=== PATIENT | male | born 1975 | race Caucasian/White ===

== ENCOUNTER → 2021-05-10 13:31 | Outpatient (BNVA) | payer SELFPAY | PROVIDERS: Family Provider Nurse Practitioner; PCP Nurse Practitioner Family; Visit Provider Nurse Practitioner Family | DX: S69.91XA Unspecified injury of right wrist, hand and finger(s), initial encounter (principal); X58.XXXA Exposure to other specified factors, initial encounter | CPT/HCPCS: 73130 ==

== ENCOUNTER → 2024-02-13 15:30 | Outpatient (BNVA) | payer SELFPAY | PROVIDERS: Family Provider Nurse Practitioner; PCP Nurse Practitioner Family; Visit Provider Student in an Organized Health Care Education/Training Program | DX: M25.532 Pain in left wrist (principal); M10.9 Gout, unspecified | CPT/HCPCS: 73110 ==

== ENCOUNTER 2025-04-21 15:38 | Outpatient (CLI) | payer SELFPAY | END 2025-04-21 15:39 | disposition home or self-care (01) | LOC: LAB 04-30 09:43 | PROVIDERS: PCP Nurse Practitioner Family; Visit Provider Nurse Practitioner Family | DX: M10.9 Gout, unspecified (principal); R07.9 Chest pain, unspecified | CPT/HCPCS: 80053; 80061; 85025 ==